=== PATIENT | male | born 1950 | race Caucasian/White ===

== ENCOUNTER 2016-11-04 15:48 | Emergency (ER) | payer OTHER ==
[~2016-11-04 15:48] MED LIST: CHILDRENS CHEWA81 MG PO; ELIQUIS5 MG PO; HYDROCODON-ACE1 EAC6 PO; LIPITOR10 MG PO; ROBAXIN500 MG PO; VASOTEC2.5 MG PO
[2016-11-04 17:43] LABS: PH,URINE 6.5 (5.0 - 9.0); URINE BILIRUBIN NEGATIVE (NEGATIVE); URINE BLOOD 3+ (NEGATIVE); URINE GLUCOSE (UA) NORMAL (NORMAL); URINE KETONE 1+ (NEGATIVE); URINE LEUKOCYTE ESTERASE TRACE (NEGATIVE); URINE NITRATE NEGATIVE (NEGATIVE); URINE PROTEIN 1+ (NEGATIVE); UROBILINOGEN NORMAL mg/dL (<1.0)
[2016-11-04 18:02] LABS: URINE RBC >20 /[HPF] (0-2)
[2016-11-04 18:03] LABS: URINE WBC 0-5 /[HPF] (0-3)
== END 2016-11-04 19:05 | disposition home or self-care (01) ==
LOC: ER 15:48
PROVIDERS: Internal Medicine
DX: R31.0 Gross hematuria (principal); I48.91 Unspecified atrial fibrillation; Z79.02 Long term (current) use of antithrombotics/antiplatelets; Z79.899 Other long term (current) drug therapy
CPT/HCPCS: 74150; 81001; 93005; 99070; 99284; 99284-25